=== PATIENT | male | born 1955 | race African-American/Black ===

== ENCOUNTER 2018-12-28 08:33 | Inpatient (IN) | payer MEDICAID ==
[~2018-12-28] VITALS: Ht 167.6 cm; Wt 104.9 kg
[2018-12-28 10:13] LABS: BASOPHILS % 0.8 % (0.0-2.0); EOSINOPHILS % 0.6 % (0.0-5.0); HEMATOCRIT. 39.6 % (42.0-52.0); HEMOGLOBIN. 12.9 g/dL (14.0-18.0); LYMPHOCYTES % 29.1 % (20.0-50.0); MEAN CORPUSCULAR HEMOGLOBIN 31.3 pg (28.0-32.0); MEAN CORPUSCULAR VOLUME 95.7 fL (80.0-94.0); MEAN PLATELET VOLUME 7.8 fl (7.4-10.4); MONOCYTES % 7.1 % (2.0-8.0); NEUTROPHILS % 62.4 % (40.0-76.0); PLATELET 277 x1000/uL (130-400); RED BLOOD CELL COUNT 4.14 mill/uL (4.7-6.1)
[2018-12-28 10:19] LABS: CHLORIDE 106 mEq/L (98-107)
[2018-12-28 10:27] LABS: *BARBITURATES SCREEN URINE NEGATIVE (NEGATIVE); *BENZODIAZEPINES SCREEN URINE NEGATIVE (NEGATIVE); *COCAINE SCREEN URINE PRESUMTIVE POSITIVE (NEGATIVE); METHADONE URINE SCREEN NEGATIVE (NEGATIVE)
[2018-12-28 10:28] LABS: *AMPHETAMINES SCREEN URINE NEGATIVE (NEGATIVE); CANNABINOID URINE SCREEN NEGATIVE (NEGATIVE); OPIATES URINE SCREEN NEGATIVE (NEGATIVE); PHENCYCLIDINE URINE SCREEN NEGATIVE (NEGATIVE)
[2018-12-28] MEDS ORDERED: FUROSEMIDE 20MG/2ML VIAL IVP ONE (10:45)
[2018-12-28 12:30] VITALS: BP 127/91
[2018-12-28] MEDS ORDERED: DOCUSATE SODIUM 100MG CAPSULE PO PRN (12:45)
[2018-12-28] MEDS ORDERED: ENOXAPARIN 40MG/0.4ML SYR SUBCUT SCH (12:45)
[2018-12-28] MEDS ORDERED: LORAZEPAM 0.5MG TABLET PO PRN (12:45)
[2018-12-28] MEDS ORDERED: ACETAMINOPHEN 325MG TABLET PO PRN (12:45)
[2018-12-28] MEDS ORDERED: ZOLPIDEM TARTRATE 5MG TABLET PO PRN (12:45)
[2018-12-28] MEDS ORDERED: NITROGLYCERIN 0.4MG TABLET SL SL PRN (12:45)
[2018-12-28] MEDS ORDERED: KETOROLAC 15MG/ML VIAL IV PRN (12:45)
[2018-12-28] MEDS ORDERED: IPRATROPIUM/ALBUTEROL 0.5-3(2.5)MG/3ML NEB INH PRN (12:45)
[2018-12-28] MEDS ORDERED: GUAIFENESIN 200MG/10ML SUGAR FREE UDC PO PRN (12:45)
[2018-12-28] MEDS ORDERED: DEXTROSE 50% WATER 50ML SYRINGE IV PRN (12:45)
[2018-12-28] MEDS ORDERED: ONDANSETRON HCL 4MG/2ML INJ IV PRN (12:45)
[2018-12-28] MEDS ORDERED: CLONIDINE 0.1MG TABLET PO PRN (12:45)
[2018-12-28] MEDS ORDERED: MAGNESIUM/ALUMINUM HYDROXIDE/SIMETHICONE 30ML UDC PO PRN (12:45)
[2018-12-28 13:25] LABS: FOLIC ACID (FOLATE) SERUM 15.3 ng/mL (>5.38)
[2018-12-28] MEDS: BLOOD SUGAR DIAGNOSTIC STRIP TEST SCH ×2 (16:40→21:00)
[2018-12-28] MEDS: INSULIN LISPRO 100 UNITS/ML SUBCUT SCH ×2 (17:01→21:00)
[2018-12-28 17:16] LABS: CREATINE KINASE 167 IU/L (39-308)
[2018-12-28] MEDS ORDERED: PNEUMOCOCCAL 23-VAL P-SAC VAC 0.5 ML IM ONE (18:45)
[2018-12-28 20:00] VITALS: BP 135/83
[2018-12-28] MEDS: FUROSEMIDE 20MG/2ML VIAL IV SCH (20:05)
[2018-12-28] MEDS: GUAIFENESIN/DM 600MG/30MG ER TAB 12HR PO SCH (21:15)
[2018-12-28] MEDS: ENOXAPARIN 30MG/0.3ML SYR SUBCUT SCH (21:16)
[2018-12-28] MEDS: SPIRONOLACTONE 25MG TABLET PO SCH (21:16)
[2018-12-28] MEDS: FAMOTIDINE 20MG TABLET PO SCH (21:16)
[2018-12-28] MEDS ORDERED: GLYB5TAB7 PO (23:19)
[2018-12-28] MEDS ORDERED: ALLO300T2 PO (23:19)
[2018-12-28] MEDS ORDERED: ATEN-42 PO (23:19)
[2018-12-28] MEDS ORDERED: SIMV20TA6 PO (23:19)
[2018-12-28] MEDS ORDERED: BENA40TA9 PO (23:19)
[2018-12-28] MEDS ORDERED: METF-416 PO (23:19)
[2018-12-28] MEDS ORDERED: ASPI-1393 PO (23:19)
[2018-12-28] MEDS ORDERED: GLIM2TAB2 PO (23:19)
[2018-12-28 23:51] LABS: CREATINE KINASE 168 IU/L (39-308)
[2018-12-29] VITALS: BP 123/82
[2018-12-29 04:00] VITALS: BP 109/77
[2018-12-29] MEDS: BLOOD SUGAR DIAGNOSTIC STRIP TEST SCH (05:26)
[2018-12-29] MEDS: FUROSEMIDE 20MG/2ML VIAL IV SCH (05:37)
[2018-12-29] MEDS: INSULIN LISPRO 100 UNITS/ML SUBCUT SCH (05:49)
[2018-12-29 08:00] VITALS: BP 103/64
[2018-12-29] MEDS ORDERED: ASPIRIN 325MG EC TABLET PO SCH (09:00)
[2018-12-29] MEDS: ENOXAPARIN 30MG/0.3ML SYR SUBCUT SCH (11:02)
[2018-12-29] MEDS: GUAIFENESIN/DM 600MG/30MG ER TAB 12HR PO SCH (11:02)
[2018-12-29] MEDS: FAMOTIDINE 20MG TABLET PO SCH (11:03)
[2018-12-29] MEDS: SPIRONOLACTONE 25MG TABLET PO SCH (11:05)
[2018-12-29 11:16] VITALS: BP 103/64
== END 2018-12-29 11:57 | disposition home or self-care (01) | DRG 194 ==
LOC: ER 08:54 → 8WST 10:55 → EDBEDREQ 10:57 → ENRESERV 11:53
PROVIDERS: ADMIT Internal Medicine; ATTEND Internal Medicine
DX: I11.0 Hypertensive heart disease with heart failure (principal); E44.1 Mild protein-calorie malnutrition; D63.8 Anemia in other chronic diseases classified elsewhere; E11.9 Type 2 diabetes mellitus without complications; E78.00 Pure hypercholesterolemia, unspecified; F14.10 Cocaine abuse, uncomplicated; M10.9 Gout, unspecified; I50.43 Acute on chronic combined systolic (congestive) and diastolic (congestive) heart failure; Z79.4 Long term (current) use of insulin; Z68.37 Body mass index [BMI] 37.0-37.9, adult
CPT/HCPCS: 36415; 71045; 80061; 80305; 82550; 82553; 82607; 82746; 82962; 83036; 83540; 83550; 83880; 84484; 93005; 93970; 94640; 96374; 99285; J1650; J1940; J7620

== ENCOUNTER 2019-03-14 11:24 | Inpatient (IN) | payer MEDICAID ==
[~2019-03-14] VITALS: Ht 175.3 cm; Wt 119.7 kg
[~2019-03-14 11:24] MED LIST: ALLO300T2 PO; ASPI-1393 PO; ATEN-42 PO; BENA40TA9 PO; GLIM2TAB2 PO; GLYB5TAB7 PO; METF-416 PO; SIMV20TA6 PO
[2019-03-14 13:27] LABS: EOSINOPHILS % 0.3 % (0.0-5.0); HEMATOCRIT. 43.7 % (42.0-52.0); HEMOGLOBIN. 13.8 g/dL (14.0-18.0); LYMPHOCYTES % 25.6 % (20.0-50.0); MEAN CORPUSCULAR HEMOGLOBIN 30.5 pg (28.0-32.0); MEAN CORPUSCULAR VOLUME 96.8 fL (80.0-94.0); MEAN PLATELET VOLUME 8.7 fl (7.4-10.4); MONOCYTES % 7.7 % (2.0-8.0); NEUTROPHILS % 65.4 % (40.0-76.0); PLATELET 257 x1000/uL (130-400); RED BLOOD CELL COUNT 4.52 mill/uL (4.7-6.1); RED CELL DISTRIBUTION WIDTH 15.7 % (11.6-14.6)
[2019-03-14 13:32] LABS: CHLORIDE 109 mEq/L (98-107)
[2019-03-14 15:01] LABS: INR 1.5; PROTHROMBIN TIME 14.7 sec (9.6-11.0)
[2019-03-14] MEDS ORDERED: FUROSEMIDE 40MG/4ML VIAL IVP ONE (15:15)
[2019-03-14] MEDS ORDERED: ONDANSETRON HCL 4MG/2ML INJ IV PRN (20:00)
[2019-03-14] MEDS ORDERED: DOCUSATE SODIUM 100MG CAPSULE PO PRN (20:00)
[2019-03-14] MEDS ORDERED: DEXTROSE 50% WATER 50ML SYRINGE IV PRN (20:00)
[2019-03-14] MEDS ORDERED: IPRATROPIUM/ALBUTEROL 0.5-3(2.5)MG/3ML NEB HHN PRN (20:00)
[2019-03-14] MEDS ORDERED: ENOXAPARIN 40MG/0.4ML SYR SUBCUT SCH (20:00)
[2019-03-14] MEDS ORDERED: MORPHINE SULFATE 2 MG/ML CPJ (NOT FOR IM USE) IV PRN (20:00)
[2019-03-14] MEDS ORDERED: CLONIDINE 0.1MG TABLET PO PRN (20:00)
[2019-03-14] MEDS ORDERED: ACETAMINOPHEN 325MG TABLET PO PRN (20:00)
[2019-03-14] MEDS ORDERED: HYDROCODONE/ACETAMINOPHEN 10/325MG TABLET PO PRN (20:00)
[2019-03-14] MEDS ORDERED: GUAIFENESIN 200MG/10ML SUGAR FREE UDC PO PRN (20:00)
[2019-03-14] MEDS ORDERED: NA PHOS,M-B/NA PHOS,DI-BA ENEMA 118ML PR PRN (20:00)
[2019-03-14] MEDS ORDERED: DIPHENHYDRAMINE 50MG/ML VIAL IV PRN (20:00)
[2019-03-14] MEDS ORDERED: HYDRALAZINE 20MG/ML VIAL IV PRN (20:00)
[2019-03-14] MEDS ORDERED: LORAZEPAM 2MG/ML CPJ IV PRN (20:00)
[2019-03-14] MEDS ORDERED: MAGNESIUM/ALUMINUM HYDROXIDE/SIMETHICONE 30ML UDC PO PRN (20:00)
[2019-03-14] MEDS: INSULIN LISPRO 100 UNITS/ML SUBCUT SCH (21:00)
[2019-03-14] MEDS: BLOOD SUGAR DIAGNOSTIC STRIP TEST SCH (21:00)
[2019-03-14 21:30] VITALS: BP 119/86
[2019-03-14] MEDS: SODIUM CHLORIDE 0.9% INJ 3ML FLUSH IVF SCH (22:22)
[2019-03-14 23:25] VITALS: BP 119/86
[2019-03-15] VITALS: BP 122/88
[2019-03-15 00:49] LABS: CREATINE KINASE 149 IU/L (39-308); CREATINE KINASE MB FRACTION 3.9 ng/mL (0.5-3.6)
[2019-03-15 04:00] VITALS: BP 136/77
[2019-03-15] MEDS: SODIUM CHLORIDE 0.9% INJ 3ML FLUSH IVF SCH ×3 (06:00→21:32)
[2019-03-15] MEDS: BLOOD SUGAR DIAGNOSTIC STRIP TEST SCH ×4 (06:00→21:20)
[2019-03-15 06:47] LABS: EOSINOPHILS % 1.5 % (0.0-5.0); HEMATOCRIT. 41.6 % (42.0-52.0); HEMOGLOBIN. 13.2 g/dL (14.0-18.0); LYMPHOCYTES % 26.2 % (20.0-50.0); MEAN CORPUSCULAR HEMOGLOBIN 30.8 pg (28.0-32.0); MEAN CORPUSCULAR VOLUME 96.9 fL (80.0-94.0); MEAN PLATELET VOLUME 8.6 fl (7.4-10.4); MONOCYTES % 9.1 % (2.0-8.0); NEUTROPHILS % 62.2 % (40.0-76.0); PLATELET 204 x1000/uL (130-400); RED BLOOD CELL COUNT 4.29 mill/uL (4.7-6.1); RED CELL DISTRIBUTION WIDTH 15.5 % (11.6-14.6)
[2019-03-15 06:54] LABS: CHLORIDE 110 mEq/L (98-107)
[2019-03-15 07:05] LABS: CREATINE KINASE MB FRACTION 3.4 ng/mL (0.5-3.6)
[2019-03-15 07:07] LABS: LDL CHOLESTEROL 66 mg/dL (5-100)
[2019-03-15 07:08] LABS: CREATINE KINASE 141 IU/L (39-308); HDL CHOLESTEROL 21 mg/dL (40-59); T4 FREE 1.17 ng/dL (0.76-1.46)
[2019-03-15 08:00] VITALS: BP 129/75
[2019-03-15] MEDS: INSULIN LISPRO 100 UNITS/ML SUBCUT SCH ×4 (08:10→21:00)
[2019-03-15] MEDS ORDERED: FUROSEMIDE 40MG/4ML VIAL IV SCH (09:00)
[2019-03-15] MEDS ORDERED: ASPIRIN 81MG EC TABLET PO SCH (09:00)
[2019-03-15] MEDS ORDERED: SODIUM BICARBONATE 4% (2.4MEQ) 5ML VIAL IV ONE (11:18)
[2019-03-15] MEDS ORDERED: LIDOCAINE HCL 1% 20ML VIAL (Pyxis) INJ ONE (11:18)
[2019-03-15 11:33] LABS: HEPATITIS B SURFACE ANTIGEN NEGATIVE
[2019-03-15 12:00] VITALS: BP 131/81
[2019-03-15] MEDS ORDERED: PNEUMOCOCCAL 23-VAL P-SAC VAC 0.5 ML IM ONE (12:00)
[2019-03-15] MEDS ORDERED: INFLUENZA VIRUS VACCINE(AFLURIA) 0.5ML SYR IM ONE (12:00)
[2019-03-15 12:03] LABS: HEPATITIS A AB IGM NEGATIVE (NEGATIVE)
[2019-03-15 15:28] LABS: INR 1.5; PROTHROMBIN TIME 14.8 sec (9.6-11.0)
[2019-03-15 16:00] VITALS: BP 139/79
[2019-03-15] MEDS: MULTIVITAMINS,THER W-MINERALS TABLET PO SCH (19:11)
[2019-03-15] MEDS: FOLIC ACID 1MG TABLET PO SCH (19:12)
[2019-03-15] MEDS: THIAMINE HCL 100MG TABLET PO SCH (19:12)
[2019-03-15] MEDS: SPIRONOLACTONE 25MG TABLET PO SCH (19:12)
[2019-03-15 20:00] VITALS: BP 119/80
[2019-03-15] MEDS: PROPRANOLOL HCL 10MG TABLET PO SCH (21:27)
[2019-03-15] MEDS: GABAPENTIN 100MG CAPSULE PO SCH (21:27)
[2019-03-16] VITALS: BP 110/82
[2019-03-16 04:00] VITALS: BP 103/68
[2019-03-16] MEDS: BLOOD SUGAR DIAGNOSTIC STRIP TEST SCH ×4 (06:06→21:07)
[2019-03-16] MEDS: SODIUM CHLORIDE 0.9% INJ 3ML FLUSH IVF SCH ×3 (06:06→21:07)
[2019-03-16 08:00] VITALS: BP 113/82
[2019-03-16 08:06] LABS: BASOPHILS % 0.3 % (0.0-2.0); EOSINOPHILS % 1.2 % (0.0-5.0); HEMATOCRIT. 40.8 % (42.0-52.0); LYMPHOCYTES % 28.4 % (20.0-50.0); MEAN CORPUSCULAR HEMOGLOBIN 30.6 pg (28.0-32.0); MEAN CORPUSCULAR VOLUME 96.3 fL (80.0-94.0); MEAN PLATELET VOLUME 8.9 fl (7.4-10.4); MONOCYTES % 9.3 % (2.0-8.0); NEUTROPHILS % 60.8 % (40.0-76.0); PLATELET 238 x1000/uL (130-400); RED BLOOD CELL COUNT 4.24 mill/uL (4.7-6.1); RED CELL DISTRIBUTION WIDTH 15.6 % (11.6-14.6)
[2019-03-16] MEDS: INSULIN LISPRO 100 UNITS/ML SUBCUT SCH ×4 (08:10→21:00)
[2019-03-16 08:35] LABS: CHLORIDE 107 mEq/L (98-107)
[2019-03-16] MEDS: THIAMINE HCL 100MG TABLET PO SCH (09:04)
[2019-03-16] MEDS: SPIRONOLACTONE 25MG TABLET PO SCH (09:05)
[2019-03-16] MEDS: CARVEDILOL 3.125 MG TABLET PO SCH ×2 (09:05→21:00)
[2019-03-16] MEDS: FOLIC ACID 1MG TABLET PO SCH (09:05)
[2019-03-16] MEDS: MULTIVITAMINS,THER W-MINERALS TABLET PO SCH (09:05)
[2019-03-16] MEDS: PROPRANOLOL HCL 10MG TABLET PO SCH ×2 (09:05→21:00)
[2019-03-16] MEDS: LISINOPRIL 5MG TABLET PO SCH (09:05)
[2019-03-16 09:58] LABS: CLARITY URINE CLOUDY (CLEAR); COLOR URINE DARK YELLOW (YELLOW); KETONES URINE NEGATIVE (NEGATIVE); LEUKOCYTE ESTERASE URINE 1+ (NEGATIVE); NITRITE URINE NEGATIVE (NEGATIVE); OCCULT BLOOD URINE 2+ (NEGATIVE); PROTEIN URINE 2+ (NEGATIVE)
[2019-03-16] MEDS: FUROSEMIDE 40MG/4ML VIAL IV SCH ×2 (09:59→17:50)
[2019-03-16 10:51] LABS: *AMPHETAMINES SCREEN URINE NEGATIVE (NEGATIVE); *BARBITURATES SCREEN URINE NEGATIVE (NEGATIVE); *BENZODIAZEPINES SCREEN URINE NEGATIVE (NEGATIVE)
[2019-03-16 10:52] LABS: *COCAINE SCREEN URINE NEGATIVE (NEGATIVE); CANNABINOID URINE SCREEN NEGATIVE (NEGATIVE); METHADONE URINE SCREEN NEGATIVE (NEGATIVE); OPIATES URINE SCREEN NEGATIVE (NEGATIVE); PHENCYCLIDINE URINE SCREEN NEGATIVE (NEGATIVE)
[2019-03-16 12:00] VITALS: BP 116/79
[2019-03-16] MEDS ORDERED: SODIUM POLYSTYRENE SULFONATE 15 G/60 ML BOT PO ONE (12:45)
[2019-03-16 16:00] VITALS: BP 111/80
[2019-03-16 20:00] VITALS: BP 108/74
[2019-03-16] MEDS: GABAPENTIN 100MG CAPSULE PO SCH (21:06)
[2019-03-16] MEDS: ENOXAPARIN 30MG/0.3ML SYR SUBCUT SCH (21:07)
[2019-03-17] VITALS: BP 121/82
[2019-03-17 04:00] VITALS: BP 115/77
[2019-03-17] MEDS: SODIUM CHLORIDE 0.9% INJ 3ML FLUSH IVF SCH (06:34)
[2019-03-17 07:33] LABS: BASOPHILS % 0.6 % (0.0-2.0); EOSINOPHILS % 1.6 % (0.0-5.0); HEMOGLOBIN. 14.7 g/dL (14.0-18.0); LYMPHOCYTES % 34.6 % (20.0-50.0); MEAN CORPUSCULAR HEMOGLOBIN 30.7 pg (28.0-32.0); MEAN PLATELET VOLUME 9.2 fl (7.4-10.4); MONOCYTES % 7.8 % (2.0-8.0); NEUTROPHILS % 55.4 % (40.0-76.0); PLATELET 251 x1000/uL (130-400); RED BLOOD CELL COUNT 4.79 mill/uL (4.7-6.1); RED CELL DISTRIBUTION WIDTH 16.1 % (11.6-14.6)
[2019-03-17] MEDS: BLOOD SUGAR DIAGNOSTIC STRIP TEST SCH ×2 (07:40→12:44)
[2019-03-17 08:00] VITALS: BP 118/74
[2019-03-17] MEDS: INSULIN LISPRO 100 UNITS/ML SUBCUT SCH ×2 (08:10→12:44)
[2019-03-17 08:19] LABS: CHLORIDE 104 mEq/L (98-107)
[2019-03-17] MEDS: SPIRONOLACTONE 25MG TABLET PO SCH (08:58)
[2019-03-17] MEDS: MULTIVITAMINS,THER W-MINERALS TABLET PO SCH (08:58)
[2019-03-17] MEDS: FOLIC ACID 1MG TABLET PO SCH (08:58)
[2019-03-17] MEDS: CARVEDILOL 3.125 MG TABLET PO SCH (08:59)
[2019-03-17] MEDS: LISINOPRIL 5MG TABLET PO SCH (08:59)
[2019-03-17] MEDS: THIAMINE HCL 100MG TABLET PO SCH (09:00)
[2019-03-17] MEDS: ENOXAPARIN 30MG/0.3ML SYR SUBCUT SCH (09:00)
[2019-03-17] MEDS: FUROSEMIDE 40MG/4ML VIAL IV SCH (09:45)
[2019-03-17] MEDS: PROPRANOLOL HCL 10MG TABLET PO SCH (09:45)
[2019-03-17 12:00] VITALS: BP 112/69
[2019-03-17 12:56] VITALS: BP 112/78
== END 2019-03-17 15:38 | disposition home or self-care (01) ==
LOC: ER 11:36 → 7WST 18:11 → EDBEDREQ 18:19 → ENRESERV 20:19
PROVIDERS: ADMIT Internal Medicine; ATTEND Internal Medicine
PROC: 0W9G3ZZ Drainage of Peritoneal Cavity, Percutaneous Approach (ICD-10-PCS; principal; 2019-03-16)
DX: K76.6 Portal hypertension (principal); J96.00 Acute respiratory failure, unspecified whether with hypoxia or hypercapnia; I50.23 Acute on chronic systolic (congestive) heart failure; E44.0 Moderate protein-calorie malnutrition; D68.9 Coagulation defect, unspecified; E11.42 Type 2 diabetes mellitus with diabetic polyneuropathy; E87.5 Hyperkalemia; I42.9 Cardiomyopathy, unspecified; I11.0 Hypertensive heart disease with heart failure; R18.8 Other ascites; K74.60 Unspecified cirrhosis of liver; E78.5 Hyperlipidemia, unspecified; D53.9 Nutritional anemia, unspecified; E66.9 Obesity, unspecified; F10.10 Alcohol abuse, uncomplicated; F14.10 Cocaine abuse, uncomplicated; I25.10 Atherosclerotic heart disease of native coronary artery without angina pectoris; K40.20 Bilateral inguinal hernia, without obstruction or gangrene, not specified as recurrent; N39.0 Urinary tract infection, site not specified; D72.819 Decreased white blood cell count, unspecified; E78.00 Pure hypercholesterolemia, unspecified; Z82.49 Family history of ischemic heart disease and other diseases of the circulatory system; Z83.3 Family history of diabetes mellitus; Z68.39 Body mass index [BMI] 39.0-39.9, adult; Z79.82 Long term (current) use of aspirin; Z79.84 Long term (current) use of oral hypoglycemic drugs
CPT/HCPCS: 36415; 49083; 71045; 74176; 76700; 80048; 80061; 80305; 81003; 82140; 82550; 82553; 82607; 82746; 82962; 83880; 84439; 84443; 84484; 86705; 86709; 86803; 87077; 87186; 87340; 87389; 90686; 90732; 93005; 93306; 93970; 96374; 99285; J1650; J1815; J1940; J3490; J7620

== ENCOUNTER 2019-05-17 21:45 | Inpatient (IN) | payer MEDICAID ==
[~2019-05-17] VITALS: Ht 170.2 cm; Wt 117.0 kg
[~2019-05-17 21:45] MED LIST changes: -ASPI-1393 PO; -ATEN-42 PO; -BENA40TA9 PO
[2019-05-17] MEDS ORDERED: FUROSEMIDE 40MG/4ML VIAL IVP ONE (22:30)
[2019-05-17 22:51] LABS: BASOPHILS % 0.7 % (0.0-2.0); EOSINOPHILS % 0.7 % (0.0-5.0); HEMATOCRIT. 44.9 % (42.0-52.0); HEMOGLOBIN. 14.1 g/dL (14.0-18.0); LYMPHOCYTES % 19.2 % (20.0-50.0); MEAN CORPUSCULAR HEMOGLOBIN 30.5 pg (28.0-32.0); MEAN CORPUSCULAR VOLUME 97.3 fL (80.0-94.0); MEAN PLATELET VOLUME 7.9 fl (7.4-10.4); MONOCYTES % 7.2 % (2.0-8.0); NEUTROPHILS % 72.2 % (40.0-76.0); PLATELET 287 x1000/uL (130-400); RED BLOOD CELL COUNT 4.62 mill/uL (4.7-6.1); RED CELL DISTRIBUTION WIDTH 17.5 % (11.6-14.6)
[2019-05-17 22:56] LABS: CHLORIDE 107 mEq/L (98-107)
[2019-05-17 22:57] LABS: BG BASE EXCESS -0.4 mmol/L (-2.0-2.0); BG CARBOXYHEMOGLOBIN 1.1 % (0.5-1.5); BG DEOXYHEMOGLOBIN 1.1 % (0.0-5.0); BG FRACTION INSPIRED OXYGEN 36; BG HCO3 ACT 23.5 mmol/L (22.0-26.0); BG METHEMOGLOBIN 0.3 % (0.0-1.5); BG OXYGEN SATURATION 98.9 % (92.0-98.5); BG OXYHEMOGLOBIN 97.5 % (94.0-97.0); BG PCO2 35.9 mmHg (35.0-45.0); BG PH 7.433 (7.350-7.450); BG PO2 136.6 mmHg (75.0-100.0); BG SAMPLE SITE RIGHT RADIAL; BG TOTAL HEMOGLOBIN 13.9 g/dL (12.0-18.0); BG VENT MODE NASAL CANNULA
[2019-05-18] VITALS (7 sets, daily range): BP systolic 105–156; BP diastolic 59–98
[2019-05-18] MEDS ORDERED: ONDANSETRON HCL 4MG/2ML INJ IV PRN (02:45)
[2019-05-18] MEDS ORDERED: DEXTROSE 50% WATER 50ML SYRINGE IV PRN (02:45)
[2019-05-18] MEDS ORDERED: ACETAMINOPHEN 325MG TABLET PO PRN (02:45)
[2019-05-18 05:34] LABS: CLARITY URINE CLOUDY (CLEAR); COLOR URINE YELLOW (YELLOW); KETONES URINE NEGATIVE (NEGATIVE); LEUKOCYTE ESTERASE URINE TRACE (NEGATIVE); NITRITE URINE NEGATIVE (NEGATIVE); OCCULT BLOOD URINE 2+ (NEGATIVE); PH URINE 5.5 (4.5-8.0); PROTEIN URINE 1+ (NEGATIVE); SPECIFIC GRAVITY URINE 1.012 (1.005-1.030)
[2019-05-18] MEDS: FUROSEMIDE 40MG/4ML VIAL IVP SCH ×2 (05:44→17:38)
[2019-05-18] MEDS: BLOOD SUGAR DIAGNOSTIC STRIP TEST SCH ×4 (05:48→20:47)
[2019-05-18 06:37] LABS: *AMPHETAMINES SCREEN URINE NEGATIVE (NEGATIVE); *BARBITURATES SCREEN URINE NEGATIVE (NEGATIVE); *BENZODIAZEPINES SCREEN URINE NEGATIVE (NEGATIVE); *COCAINE SCREEN URINE NEGATIVE (NEGATIVE); CANNABINOID URINE SCREEN NEGATIVE (NEGATIVE); METHADONE URINE SCREEN NEGATIVE (NEGATIVE); OPIATES URINE SCREEN NEGATIVE (NEGATIVE); PHENCYCLIDINE URINE SCREEN NEGATIVE (NEGATIVE)
[2019-05-18] MEDS: INSULIN LISPRO 100 UNITS/ML SUBCUT SCH ×4 (08:10→20:52)
[2019-05-18] MEDS: METFORMIN HCL 500MG TABLET PO SCH ×2 (08:43→17:38)
[2019-05-18] MEDS: ALLOPURINOL 300 MG TABLET PO SCH (08:44)
[2019-05-18] MEDS: ENOXAPARIN 30MG/0.3ML SYR SUBCUT SCH ×2 (08:44→20:46)
[2019-05-18] MEDS: ASPIRIN 325MG EC TABLET PO SCH (08:44)
[2019-05-18] MEDS: CARVEDILOL 3.125 MG TABLET PO SCH ×2 (08:45→20:46)
[2019-05-18] MEDS ORDERED: LISINOPRIL 5MG TABLET PO SCH (09:00)
[2019-05-18] MEDS: LISINOPRIL 5MG TABLET PO SCH ×2 (15:30→17:47)
[2019-05-18] MEDS ORDERED: CLONIDINE 0.1MG TABLET PO PRN (15:45)
[2019-05-18] MEDS: ATORVASTATIN CALCIUM 10MG TABLET PO SCH (20:46)
[2019-05-19 00:07] VITALS: BP 122/84
[2019-05-19 04:00] VITALS: BP 121/81
[2019-05-19] MEDS: FUROSEMIDE 40MG/4ML VIAL IVP SCH ×2 (05:39→17:49)
[2019-05-19] MEDS: BLOOD SUGAR DIAGNOSTIC STRIP TEST SCH ×4 (05:42→20:16)
[2019-05-19 08:00] VITALS: BP 130/92
[2019-05-19] MEDS: INSULIN LISPRO 100 UNITS/ML SUBCUT SCH ×4 (08:10→20:16)
[2019-05-19 08:42] LABS: CHLORIDE 105 mEq/L (98-107)
[2019-05-19] MEDS: CARVEDILOL 3.125 MG TABLET PO SCH ×2 (08:44→20:26)
[2019-05-19] MEDS: ASPIRIN 325MG EC TABLET PO SCH (08:44)
[2019-05-19] MEDS: ALLOPURINOL 300 MG TABLET PO SCH (08:44)
[2019-05-19] MEDS: ENOXAPARIN 30MG/0.3ML SYR SUBCUT SCH ×2 (08:44→20:26)
[2019-05-19] MEDS: METFORMIN HCL 500MG TABLET PO SCH ×2 (08:44→17:49)
[2019-05-19] MEDS: LISINOPRIL 5MG TABLET PO SCH ×2 (08:49→17:00)
[2019-05-19 08:53] LABS: CREATINE KINASE 93 IU/L (39-308)
[2019-05-19 08:55] LABS: CREATINE KINASE MB FRACTION 3.5 ng/mL (0.5-3.6)
[2019-05-19 10:56] LABS: BASOPHILS % 0.8 % (0.0-2.0); HEMATOCRIT. 39.1 % (42.0-52.0); HEMOGLOBIN. 12.8 g/dL (14.0-18.0); LYMPHOCYTES % 13.6 % (20.0-50.0); MEAN CORPUSCULAR HEMOGLOBIN 31.4 pg (28.0-32.0); MEAN CORPUSCULAR VOLUME 95.9 fL (80.0-94.0); MEAN PLATELET VOLUME 7.9 fl (7.4-10.4); MONOCYTES % 6.5 % (2.0-8.0); NEUTROPHILS % 78.1 % (40.0-76.0); PLATELET 271 x1000/uL (130-400); RED BLOOD CELL COUNT 4.08 mill/uL (4.7-6.1); RED CELL DISTRIBUTION WIDTH 17.3 % (11.6-14.6)
[2019-05-19 12:00] VITALS: BP 128/81
[2019-05-19] MEDS ORDERED: FUROSEMIDE 40MG/4ML VIAL IVP SCH (14:45)
[2019-05-19 15:50] VITALS: BP 119/91
[2019-05-19 20:00] VITALS: BP 119/83
[2019-05-19] MEDS: ATORVASTATIN CALCIUM 10MG TABLET PO SCH (20:23)
[2019-05-20] VITALS: BP 111/61
[2019-05-20 04:00] VITALS: BP 139/74
[2019-05-20] MEDS: BLOOD SUGAR DIAGNOSTIC STRIP TEST SCH ×4 (06:34→20:56)
[2019-05-20] MEDS: FUROSEMIDE 40MG/4ML VIAL IVP SCH ×2 (06:36→17:38)
[2019-05-20 08:00] VITALS: BP 119/55
[2019-05-20] MEDS: INSULIN LISPRO 100 UNITS/ML SUBCUT SCH ×4 (08:10→20:56)
[2019-05-20 08:19] LABS: BASOPHILS % 0.8 % (0.0-2.0); MEAN CORPUSCULAR HEMOGLOBIN 30.9 pg (28.0-32.0); MEAN CORPUSCULAR VOLUME 94.7 fL (80.0-94.0); MEAN PLATELET VOLUME 8.1 fl (7.4-10.4); MONOCYTES % 8.7 % (2.0-8.0); NEUTROPHILS % 69.5 % (40.0-76.0); PLATELET 297 x1000/uL (130-400); RED BLOOD CELL COUNT 4.22 mill/uL (4.7-6.1); RED CELL DISTRIBUTION WIDTH 16.8 % (11.6-14.6)
[2019-05-20 08:24] LABS: INR 1.2; PARTIAL THROMBOPLASTIN TIME 29.5 sec (23.4-31.0); PROTHROMBIN TIME 12.8 sec (9.6-11.0)
[2019-05-20 08:29] LABS: CHLORIDE 100 mEq/L (98-107)
[2019-05-20] MEDS: ENOXAPARIN 30MG/0.3ML SYR SUBCUT SCH ×2 (09:00→20:56)
[2019-05-20] MEDS: LISINOPRIL 5MG TABLET PO SCH ×2 (09:02→16:28)
[2019-05-20] MEDS: CARVEDILOL 3.125 MG TABLET PO SCH ×2 (09:03→20:55)
[2019-05-20] MEDS: METFORMIN HCL 500MG TABLET PO SCH ×2 (09:03→17:37)
[2019-05-20] MEDS: ALLOPURINOL 300 MG TABLET PO SCH (09:04)
[2019-05-20 12:00] VITALS: BP 103/62
[2019-05-20 16:00] VITALS: BP 107/76
[2019-05-20] MEDS: CEFTRIAXONE 1 G PREMIX 50 ML IV SCH (16:26)
[2019-05-20 20:00] VITALS: BP 115/76
[2019-05-20] MEDS: ATORVASTATIN CALCIUM 10MG TABLET PO SCH (20:55)
[2019-05-21] VITALS: BP 117/65
[2019-05-21] MEDS: FUROSEMIDE 40MG/4ML VIAL IVP SCH ×2 (06:43→18:23)
[2019-05-21] MEDS: BLOOD SUGAR DIAGNOSTIC STRIP TEST SCH ×4 (06:44→21:25)
[2019-05-21 07:30] LABS: BASOPHILS % 0.6 % (0.0-2.0); EOSINOPHILS % 1.2 % (0.0-5.0); HEMATOCRIT. 38.4 % (42.0-52.0); HEMOGLOBIN. 12.3 g/dL (14.0-18.0); LYMPHOCYTES % 16.4 % (20.0-50.0); MEAN CORPUSCULAR HEMOGLOBIN 30.6 pg (28.0-32.0); MEAN CORPUSCULAR VOLUME 95.1 fL (80.0-94.0); MEAN PLATELET VOLUME 7.8 fl (7.4-10.4); MONOCYTES % 8.9 % (2.0-8.0); NEUTROPHILS % 72.9 % (40.0-76.0); PLATELET 276 x1000/uL (130-400); RED BLOOD CELL COUNT 4.03 mill/uL (4.7-6.1); RED CELL DISTRIBUTION WIDTH 17.3 % (11.6-14.6)
[2019-05-21 07:32] LABS: CHLORIDE 102 mEq/L (98-107)
[2019-05-21 08:00] VITALS: BP 111/77
[2019-05-21] MEDS: LISINOPRIL 5MG TABLET PO SCH (09:36)
[2019-05-21] MEDS: METFORMIN HCL 500MG TABLET PO SCH ×2 (09:36→18:23)
[2019-05-21] MEDS: CARVEDILOL 3.125 MG TABLET PO SCH ×2 (09:37→21:24)
[2019-05-21] MEDS: CEFTRIAXONE 1 G PREMIX 50 ML IV SCH (09:38)
[2019-05-21] MEDS: INSULIN LISPRO 100 UNITS/ML SUBCUT SCH ×4 (09:38→21:42)
[2019-05-21] MEDS: ALLOPURINOL 300 MG TABLET PO SCH (09:39)
[2019-05-21] MEDS: ENOXAPARIN 30MG/0.3ML SYR SUBCUT SCH ×2 (09:40→21:25)
[2019-05-21 12:00] VITALS: BP 117/84
[2019-05-21 16:00] VITALS: BP 103/69
[2019-05-21 20:00] VITALS: BP 113/77
[2019-05-21] MEDS ORDERED: MAGNESIUM 2 G PREMIX 50 ML IV NR (20:00)
[2019-05-21] MEDS: ATORVASTATIN CALCIUM 10MG TABLET PO SCH (21:24)
[2019-05-21] MEDS: LOSARTAN POTASSIUM 25 MG TABLET PO SCH (21:24)
[2019-05-22] VITALS: BP 102/66
[2019-05-22 04:00] VITALS: BP 109/71
[2019-05-22] MEDS: FUROSEMIDE 40MG/4ML VIAL IVP SCH (06:01)
[2019-05-22] MEDS: BLOOD SUGAR DIAGNOSTIC STRIP TEST SCH (06:51)
[2019-05-22] MEDS: INSULIN LISPRO 100 UNITS/ML SUBCUT SCH (08:10)
[2019-05-22 08:29] LABS: CHLORIDE 103 mEq/L (98-107)
[2019-05-22] MEDS: CEFTRIAXONE 1 G PREMIX 50 ML IV SCH ×2 (09:00→10:04)
[2019-05-22] MEDS: ENOXAPARIN 30MG/0.3ML SYR SUBCUT SCH ×2 (09:00→10:03)
[2019-05-22 09:45] LABS: BASOPHILS % 1.3 % (0.0-2.0); EOSINOPHILS % 0.6 % (0.0-5.0); HEMATOCRIT. 39.1 % (42.0-52.0); HEMOGLOBIN. 12.9 g/dL (14.0-18.0); LYMPHOCYTES % 17.6 % (20.0-50.0); MEAN CORPUSCULAR HEMOGLOBIN 31.1 pg (28.0-32.0); MEAN CORPUSCULAR VOLUME 94.4 fL (80.0-94.0); MEAN PLATELET VOLUME 7.8 fl (7.4-10.4); MONOCYTES % 8.7 % (2.0-8.0); NEUTROPHILS % 71.8 % (40.0-76.0); PLATELET 300 x1000/uL (130-400); RED BLOOD CELL COUNT 4.14 mill/uL (4.7-6.1); RED CELL DISTRIBUTION WIDTH 17.2 % (11.6-14.6)
[2019-05-22] MEDS: CARVEDILOL 3.125 MG TABLET PO SCH (10:03)
[2019-05-22] MEDS: LOSARTAN POTASSIUM 25 MG TABLET PO SCH (10:03)
[2019-05-22] MEDS: ALLOPURINOL 300 MG TABLET PO SCH (10:03)
[2019-05-22] MEDS: METFORMIN HCL 500MG TABLET PO SCH (10:04)
[2019-05-22] MEDS ORDERED: COR3 PO (10:35)
[2019-05-22] MEDS ORDERED: FURO40TA5 PO (10:35)
[2019-05-22] MEDS ORDERED: LOSA25TA3 PO (10:36)
[2019-05-22 10:53] VITALS: BP 140/86
[2019-05-22] MEDS ORDERED: FUROSEMIDE 40MG TABLET PO SCH (18:00)
== END 2019-05-22 11:42 | disposition home or self-care (01) | DRG 194 ==
LOC: ER 21:58 → 7WST 23:31 → EDBEDREQTM 23:58 → EDBEDREQ 23:58 → ENRESERV 05-18 00:13
PROVIDERS: ADMIT Internal Medicine; ATTEND Internal Medicine
DX: I11.0 Hypertensive heart disease with heart failure (principal); R18.8 Other ascites; I42.0 Dilated cardiomyopathy; I50.23 Acute on chronic systolic (congestive) heart failure; M10.9 Gout, unspecified; E11.9 Type 2 diabetes mellitus without complications; E66.9 Obesity, unspecified; E78.5 Hyperlipidemia, unspecified; E78.00 Pure hypercholesterolemia, unspecified; I35.1 Nonrheumatic aortic (valve) insufficiency; I50.82 Biventricular heart failure; Z68.41 Body mass index [BMI] 40.0-44.9, adult
CPT/HCPCS: 36415; 36600; 71045; 76705; 80048; 80053; 80305; 80320; 81003; 82375; 82550; 82553; 82805; 82962; 83735; 83880; 84484; 85025; 85379; 93005; 93306; 93970; 99285; J0696; J1650; J1815; J1940; J3475; G0480